=== PATIENT | male | born 1970 | race Caucasian/White ===

== ENCOUNTER 2018-06-29 09:43 | Outpatient (CLI) | payer OTHER ==
[~2018-06-29 09:43] MED LIST: CIPRO500 MG PO; ZANTAC300 MG PO; ZOFRAN4 MG PO
== END 2018-06-29 09:54 | disposition home or self-care (01) ==
LOC: TOM 09:43
DX: R31.0 Gross hematuria (principal)

== ENCOUNTER 2020-04-08 15:06 | Emergency (ER) | payer OTHER ==
[~2020-04-08] VITALS: Ht 185.4 cm; Wt 72.6 kg
== END 2020-04-08 18:21 | disposition home or self-care (01) ==
LOC: ER 15:06
DX: R53.1 Weakness (principal)

== ENCOUNTER 2020-07-09 13:00 | Emergency (ER) | payer OTHER ==
[~2020-07-09] VITALS: Ht 185.4 cm; Wt 72.6 kg
[2020-07-09] MEDS ORDERED: NAPROXEN375 MG PO (16:34)
[2020-07-09] MEDS ORDERED: AMOX-CLAV 875-1 EACH PO (16:34)
[2020-07-09] MEDS ORDERED: INTESTINEX680 M2 PO (16:34)
== END 2020-07-09 17:17 | disposition home or self-care (01) ==
LOC: ER 13:00
DX: S01.522A Laceration with foreign body of oral cavity, initial encounter (principal); W22.8XXA Striking against or struck by other objects, initial encounter; Y93.89 Activity, other specified; Y92.488 Other paved roadways as the place of occurrence of the external cause; Y99.8 Other external cause status

== ENCOUNTER 2020-07-18 13:51 | Emergency (ER) | payer OTHER ==
[~2020-07-18] VITALS: Ht 185.4 cm; Wt 72.6 kg
[~2020-07-18 13:51] MED LIST changes: +AMOX-CLAV 875-1 EACH PO; +INTESTINEX680 M2 PO; +NAPROXEN375 MG PO
== END 2020-07-18 14:55 | disposition home or self-care (01) ==
LOC: ER 13:51
DX: Z48.02 Encounter for removal of sutures (principal)

== ENCOUNTER → 2021-10-05 | Emergency (ER) | payer OTHER ==
[~2021-10-05] VITALS: Ht 185.4 cm; Wt 74.8 kg
[~2021-10-05] MED LIST changes: +OSEL75CA PO
== END | disposition home or self-care (01) ==
LOC: ER 13:52
DX: J10.1 Influenza due to other identified influenza virus with other respiratory manifestations (principal); Z20.822 Contact with and (suspected) exposure to COVID-19

== ENCOUNTER 2022-04-25 10:56 | Emergency (ER) | payer OTHER ==
[~2022-04-25] VITALS: Ht 185.4 cm; Wt 74.8 kg
== END 2022-04-25 13:31 | disposition home or self-care (01) ==
LOC: ER 10:56
DX: K40.90 Unilateral inguinal hernia, without obstruction or gangrene, not specified as recurrent (principal)

== ENCOUNTER 2022-05-27 06:00 | Day surgery (SDC) | payer OTHER ==
[~2022-05-27] VITALS: Ht 63.5 cm; Wt 74.8 kg
[2022-05-27] MEDS ORDERED: ACETAMINOPHEN-1 EAC2 PO (12:19)
[2022-05-27] MEDS ORDERED: PROTONIX40 MG PO (12:19)
[2022-05-27] MEDS ORDERED: CEFADROXIL500 MG PO (12:19)
== END 2022-05-27 18:15 | disposition home or self-care (01) ==
LOC: CIR.AMB 06:00
PROVIDERS: ATTEND Surgery
DX: K40.90 Unilateral inguinal hernia, without obstruction or gangrene, not specified as recurrent (principal); Z20.822 Contact with and (suspected) exposure to COVID-19; F17.210 Nicotine dependence, cigarettes, uncomplicated